=== PATIENT | female | born 1935 | race Caucasian/White ===

== ENCOUNTER → 2016-11-19 | Outpatient (CLI) | payer OTHER ==
[~2016-11-19] MED LIST: ACET-1138 PO; ASPEC81 PO; CHOL100010 PO; CLB200 PO; CLOB-65 EXT; LANS15TA2 PO; LISI-787 PO; METH10TA6 PO; NYSTCRE11 TOP; RANI300T2 PO; RXC5 PO; SNK PO; TRAM-10 PO
[2016-11-19 15:21] LABS: THYROID STIMULATING HORMONE 1.55 uIu/ml (0.300-4.500)
== END | disposition home or self-care (01) ==
LOC: C.LAB1850 13:57
PROVIDERS: ATTEND Internal Medicine Endocrinology, Diabetes & Metabolism
DX: E05.90 Thyrotoxicosis, unspecified without thyrotoxic crisis or storm (principal)

== ENCOUNTER → 2016-11-21 | Outpatient (CLI) | payer OTHER | END | disposition home or self-care (01) | LOC: C.LAB1850 13:41 | PROVIDERS: ATTEND Internal Medicine Endocrinology, Diabetes & Metabolism | DX: E83.52 Hypercalcemia (principal) ==

== ENCOUNTER → 2017-03-27 | Outpatient (CLI) | payer OTHER ==
[2017-03-27 16:49] LABS: CALCIUM 9.1 mg/dl (8.5-10.1); CREATININE 0.95 mg/dl (0.60-1.20)
== END | disposition home or self-care (01) ==
LOC: C.LAB1850 15:07
PROVIDERS: ATTEND Internal Medicine Endocrinology, Diabetes & Metabolism
DX: E21.3 Hyperparathyroidism, unspecified (principal); E05.90 Thyrotoxicosis, unspecified without thyrotoxic crisis or storm; M85.80 Other specified disorders of bone density and structure, unspecified site

== ENCOUNTER → 2017-04-14 | Day surgery (SDC) | payer OTHER ==
[~2017-04-14] VITALS: Ht 154.9 cm; Wt 87.7 kg
[~2017-04-14] MED LIST changes: +ACETAMINOPHEN 500 MG TAB PO PRN; +ZOLEDRONIC ACID INJ 5 MG in EMPTY BAG 0 ML IV SCH
[2017-04-14 10:42] VITALS: BP 177/91; PULSE 69; TEMP 36.8; O2SAT 98; Ht 154.9 cm; Wt 87.7 kg
== END | disposition home or self-care (01) ==
LOC: C.MTU 10:05
PROVIDERS: ATTEND Internal Medicine Endocrinology, Diabetes & Metabolism
DX: M81.0 Age-related osteoporosis without current pathological fracture (principal)

== ENCOUNTER → 2017-07-27 | Outpatient (CLI) | payer OTHER ==
[~2017-07-27] MED LIST changes: -ACET-1138 PO; -ACETAMINOPHEN 500 MG TAB PO PRN; -ASPEC81 PO; -CLB200 PO; -SNK PO; -ZOLEDRONIC ACID INJ 5 MG in EMPTY BAG 0 ML IV SCH
[2017-07-27 16:00] LABS: CALCIUM 10.5 mg/dl (8.5-10.1)
== END | disposition home or self-care (01) ==
LOC: C.LAB1850 14:08
PROVIDERS: ATTEND Internal Medicine Endocrinology, Diabetes & Metabolism
DX: E05.90 Thyrotoxicosis, unspecified without thyrotoxic crisis or storm (principal); E21.3 Hyperparathyroidism, unspecified

== ENCOUNTER 2023-06-06 12:25 | Inpatient (IN) ==
--- OUTSIDE RECORDS SUMMARY | 2023-06-06 12:37 | External Medical Summary ---
Author Name Unknown Address Unknown Organization [id number]:LAB[facility]ATORY [facility] [place] - [address] [place] [address] Laboratory Report Ordering Provider Test Date Status MIRELLA LEE 06/02/2023 12:30:04 Final Observation Date Value Abnormality Reference (Units ) Status Parathyrin.intact [Mass/volume] in Serum or Plasma 06/02/2023 12:30:04 35 15-65 (pg/mL) Final Performing Location [facility]ORY [facility] [place] - [address] [place] [address]
--- OUTSIDE RECORDS SUMMARY | 2023-06-06 12:37 | External Medical Summary ---
Author Name Unknown Address Unknown Organization [id number]:[facility] [place] [address] [place] [address] Laboratory Report Ordering Provider Test Date Status MIRELLA LEE 06/02/2023 12:30:04 Final Observation Date Value Abnormality Reference (Units ) Status WBC, Total 06/02/2023 12:30:04 6.12 4.00-10.80 (K/uL) Final RBC 06/02/2023 12:30:04 4.49 3.85-5.15 (M/uL) Final Hemoglobin 06/02/2023 12:30:04 9.9 Below low normal 12.0-15.3 (g/dL) Final HCT 06/02/2023 12:30:04 35.3 Below low normal 36.0-45.2 (%) Final MCV 06/02/2023 12:30:04 78.6 81.5-97.5 (fL) Final MCH 06/02/2023 12:30:04 22.0 27.0-34.0 (pg) Final MCHC 06/02/2023 12:30:04 28.0 32.0-36.0 (g/dL) Final RDW 06/02/2023 12:30:04 16.0 11.5-15.5 (%) Final Platelets 06/02/2023 12:30:04 300 140-400 (K/uL) Final MPV 06/02/2023 12:30:04 11.6 6.6-11.1 (fL) Final Nucleated erythrocytes/100 leukocytes [Ratio] in Blood by Automated count 06/02/2023 12:30:04 0 <=0 (/100 WBCs) Final Performing Location [facility] [place] - [address] [place] [address]
--- OUTSIDE RECORDS SUMMARY | 2023-06-06 12:37 | External Medical Summary | Summary of Care ---
Author Name Unknown Organization [facility] Address [address] [place] [address] Phone [phone] Care Team Providers Care Staff Registered Nurse Name Role Phone Jesus Ireland DO Primary Care Provider Reason for Visit * Reason Comments eRx-Medication Refill Encounter Details Date Type Department Care Team (Late st Contact Info) Description 06/03/2023 Refill [facility] [address] [place] [address] Jesus Ireland DO [address], [place] [phone] Chronic bilateral low back pain without sciatica Allergies Active Allergy Reactions Criticality Noted Date Comments Morphine Nausea/vomiting 03/29/2014 documented as of this encounter (statuses as of 06/03/2023) Medications Medication Sig Dispensed Refills Start Date End Date Status PREVACID 15 MG OR PACK 1 PO QAM 0 0 11/26/2004 Active nystatin-triamcino lone (MYCOLOG) 956889-4.1 UNIT/GM-% ointment 0 08/04/2015 Active clobetasol propionate (TEMOVATE) 0.05 % creamIndications:D ermatitis Apply topically to affected area 2 times a day. To affected area for up to two weeks. 60 g 1 01/02/2016 Active Diclofenac Sodium 1 % gelIndications:MED ICATION USE AGREEMENT Place 4 g topically on the skin 4 times a day. Apply to R wrist - rub in well 100 g 2 03/24/2019 Active famotidine (PEPCID) 20 MG Tablet Take 1 Tab by mouth daily. 90 Tab 3 06/30/2019 Active amLODIPine Besylate 5 MG Oral Tablet (Norvasc)Indicatio ns:HTN, goal below 140/90 Take 1 Tablet by mouth in the morning. 90 Tablet 11 08/04/2022 Active Lisinopril 30 MG Oral TabletIndications: HTN, goal below 140/90 Take 1 Tablet by mouth in the morning. 90 Tablet 3 08/04/2022 Active Zoster Vac Recomb Adjuvanted 50 MCG/0.5ML Intramuscular Suspension Reconstituted (Shingrix)Indicati ons:Need for shingles vaccine Inject 0.5 mL into a large muscle now and repeat dose in 60 to 180 days 1 Each 1 08/25/2022 Active methIMAzole 5 MG Oral Tablet (Tapazole) Take 1 Tablet by mouth in the morning. 0 Active Cinacalcet HCl 60 MG Oral Tablet (Sensipar) Take 1 Tablet by mouth 2 times a day. 0 12/04/2022 Active Omeprazole 20 MG Oral Capsule Delayed Release (PriLOSEC)Indicati ons:Gastroesophage al reflux disease without esophagitis Take 1 Capsule by mouth in the morning. 1 hour before the first meal of the day. 90 Capsule 3 05/25/2023 Active Zoster Vac Recomb Adjuvanted 50 MCG/0.5ML Intramuscular Suspension Reconstituted (Shingrix)Indicati ons:Need for shingles vaccine Inject 0.5 mL into a large muscle now and repeat dose in 60 to 180 days 1 Each 1 05/25/2023 Active traMADol HCl 50 MG Oral Tablet (Ultram)Indication s:Chronic bilateral low back pain without sciatica Take 1 Tablet by mouth every 8 hours as needed for Pain, Severe. 60 Tablet 0 06/03/2023 Active traMADol HCl 50 MG Oral Tablet (Ultram)Indication s:Chronic bilateral low back pain without sciatica Take 1 Tablet by mouth 2 times a day as needed for Pain, Moderate. 60 Tablet 0 02/16/2023 3 Discontinued documented as of this encounter (statuses as of 06/03/2023) Active Problems Problem Noted Date Diagnosed Date Iron deficiency anemia 03/18/2021 MEDICATION USE AGREEMENT 08/03/2018 Hyperparathyroidism, primary 12/11/2017 Senile osteoporosis 09/10/2017 Hypercalcemia 10/01/2015 Hyperthyroidism 10/01/2015 HTN, goal below 140/90 Gastroesophageal reflux disease without esophagi tis documented as of this encounter (statuses as of 06/03/2023) Resolved Problems Problem Noted Date Diagnosed Date Resolved Date Hyperparathyroidism 10/01/2015 09/11/19 ADVANCE DIRECTIVE INFORMATION 06/06/2015 03/24/2019 Overview: Yes, Copy scanned at patient level in the electronic medical record.(Go to Action, Patient File to view) Patient aware they must notify their healthcare provider of changes. Kidney disease, chronic, sta ge III (GFR 30-59 ml/min) 04/09/2015 06/06/2016 Overview: Per CKD protocol #1 documented as of this encounter (statuses as of 06/03/2023) Immunizations Name Administration Dates Next Due Pneumococcal Conjugate Vacc, 13 Valent (Prevnar) 03/13/2017 Pneumococcal Polysaccharide PPV23 (Pneumovax) Seasonal Influenza, Quadrivalent Hd (Fluzone Hd) 08/04/2022 documented as of this encounter Social History Tobacco Use Types Packs/Day Years Used Date Smoking Tobacco: Never Passive Smoke Exposure: Past Smokeless Tobacco: Never Passive Exposure Comments:As A Child. Alcohol Use Standard Drinks/Week Comments No 0 (1 standard drink = 0.6 oz pur e alcohol) PHQ-2 Answer Date Recorded PHQ-2 Score 0 01/14/2020 Hunger Vital Sign Answer Date Recorded Worried About Running Out of Food in the Last Ye ar Never true 01/14/2020 Ran Out of Food in the Last Year Never true 01/14/2020 Sex and Gender Information Value Date Recorded Sex Assigned at Female 08/25/2022 12:28 PM EST Gender Identity Female 08/25/2022 12:28 PM EST Sexual Orientation Straight 01/14/2020 10 :34 AM EDT Job Start Date Occupation Industry Not on file Not on file Not on file documented as of this encounter Miscellaneous Notes * Telephone Encounter - Jesus Ireland DO - 06/03/2023 2:31 PM ESTSigned Prescriptions: Disp Refills traMADol HCl 50 MG Oral Tablet (Ultram) 60 Tab*0 Sig: Take 1 Tablet by mouth every 8 hours as needed for Pain, Severe. Authorizing Provider: JESUS IRELAND * Telephone Encounter - Austen Zambrano, [facility] - 06/03/2023 2:11 PM EST Pending Prescriptions: Disp Refills traMADol HCl 50 MG Oral Tablet 60 Tab*0 Sig: TAKE 1 TABLET BY MOUTH TWICE DAILY NEEDED FOR MODERATE PAIN * Telephone Encounter - Austen Zambrano [facility] - 06/03/2023 2:10 PM EST I have reviewed the patients controlled substance dispensing history in the Prescription Drug Monitoring Program in compliance with the [facility] regulations before prescribing a controlled substance. PDMP checked on 06/03/2023. Pending Prescriptions: Disp Refills traMADol HCl 50 MG Oral Tablet (Ultram) [*60 Tab*0 Sig: TAKE 1 TABLET BY MOUTH TWICE DAILY NEEDED FOR MODERATE PAIN Last Visit: 05/25/2023 (in office), 06/20/2020 (telemedicine) Next Visit: 09/30/2023 Date medication was last filled: 02/16/23 Date medication is due for refill: 03/17/23 Pharmacy: [facility] [address] [place] Is this request for a controlled substance? Yes and Urine Drug Screen Not completed Please approve if appropriate. Thanks, Austen Zambrano, PharmD Clinical Pharmacist [facility] ([facility]) (formerly Telepharmacy) [phone] 06/03/2023, 2:11 PM documented in this encounter Plan of Treatment Upcoming Encounters Date Type Department Care Team (Late st Contact Info) Description 09/30/2023 11:30 AM EDT Office Visit [facility] [address] [place] [facility] [place] [address] Jesus Ireland DO [address] [place] [facility] [place] [address] Scheduled Procedures Name Priority Associated Diagnoses Date/Ti me ESOPHAGOGASTRODUODENOSCOPY ( EGD), FLEXIBLE, TRANSORAL: MUCOSAL RESECTION Recall Gastric polyps Health Maintenance Due Date Last Done Comments DTaP,Tdap,and Td Vaccines (1 - Tdap) 10/20/1954 Zoster Vaccines (1 of 2) 1986 Depression Screening 01/13/2021 01/14/2020 COVID-19 Vaccine (3 - 2022- season) 2023 2020, 09/28/2020 Influenza Vaccine (FLU shot) (#1) 2023 08/04/2022 DXA Scan 10/30/2023 10/29/2021, 10/2019, 02/17/2017, Additional history exists Albumin/Creatinine Ratio 06/02/2026 06/02/2023 Pneumococcal Vaccine: 65+ Years Completed 03/13/2017, 10/01/2015 VITAMIN D LEVEL ONCE IN A LIFETIME-USE SMARTSET# 69351 Completed 01/14/2020 GARDASIL-HPV IMMUNIZATION SERIES Aged Out No longer eligible based on patient's age to complete this topic Hepatitis B Aged Out No longer eligi ble based on patient's age to complete this topic MENINGOCOCCAL (MENACTRA/MENVEO) Aged Out No longer eligible based on patient's age to complete this topic documented as of this encounter Medical Devices Not on filedocumented as of this encounter Visit Diagnoses Diagnosis Chronic bilateral low back pain without sciatica documented in this encounter Care Teams Staff Registered Nurse Relationship Specialty Start Date End Date Jesus Ireland DO [address] [id number] PCP - General Family Medicine 08/03/18 documented as of this encounter
--- OUTSIDE RECORDS SUMMARY | 2023-06-06 12:37 | External Medical Summary ---
Author Name Unknown Address Unknown Organization K01:[facility] [place] - [facility] [address] [place] [address] Laboratory Report Ordering Provider Test Date Status MIRELLA LEE 06/02/2023 12:30:04 Final Observation Date Value Abnormality Reference (Units ) Status BUN 06/02/2023 12:30:04 18 6-20 (mg/dL) Final Creatinine 06/02/2023 12:30:04 0.9 0.5-1.0 (mg/dL) Final Glomerular filtration rate/1.73 sq M.predicted [Volume Rate/Area] in Serum, Plasma or Blood by Creatinine-based formula (CKD-EPI) 06/02/2023 12:30:04 60 >=60 (mL/min) Final eGFR is calculated based on the CKD-EPI 2020 equation SODIUM 06/02/2023 12:30:04 143 135-146 (m mol/L) Final Potassium 06/02/2023 12:30:04 4.3 3.5-5.1 (m mol/L) Final Cl 06/02/2023 12:30:04 108 Above high normal 98 -107 (mmol/L) Final CO2 06/02/2023 12:30:04 23 22-32 (mmo l/L) Final Anion gap 06/02/2023 12:30:04 12 7-15 (mmol /L) Final Glucose 06/02/2023 12:30:04 95 70-120 (mg /dL) Final Calcium 06/02/2023 12:30:04 9.5 8.4-10.2 ( mg/dL) Final Performing Location [facility]ORY [facility] [place] - [address] [place] [address]
--- OUTSIDE RECORDS SUMMARY | 2023-06-06 12:37 | External Medical Summary ---
Author Name Unknown Address Unknown Organization K01:[facility]ATORY [facility] [place] - [address] [place] [address] Laboratory Report Ordering Provider Test Date Status MIRELLA LEE 06/02/2023 12:30:04 Final Observation Date Value Abnormality Reference (Units ) Status TSH 06/02/2023 12:30:04 0.54 0.27-4.20 (uIU/mL) Final Performing Location LAB[facility]ATORY [facility] - [address] [place] [address]
--- OUTSIDE RECORDS SUMMARY | 2023-06-06 12:37 | External Medical Summary ---
Author Name Unknown Address Unknown Organization K01:[facility] [place] [address] [place] [address] Laboratory Report Ordering Provider Test Date Status SUZE LEEPOLLY 06/02/2023 12:30:04 Final Normal: <30 mg/g creatinine< br/>High: 30-300 mg/g creatinine
Very High: >300 mg/g creatinine
Nephrotic: >2200 mg/g creatinine Observation Date Value Abnormality Reference (Units ) Status Albumin, Urine 06/02/2023 12:30:04 9.34 (mg/dL) Final Creatinine, Urine 06/02/2023 12:30:04 46 (mg/dL) Final Albumin/Creatinine [Mass Ratio] in Urine 06/02/2023 12:30:04 203 Above high normal <30 (mg/g Creat) Final Performing Location [facility] [place] [address] [place] [address]
--- OUTSIDE RECORDS SUMMARY | 2023-06-06 12:37 | External Medical Summary | Summary of Care ---
Author Name Unknown Organization [facility] Address [address] [place] [address] Phone [phone] Care Team Providers Care Machine Pecan Picker Name Role Phone Monse Ireland DO Primary Care Provider + [phone] Reason for Visit * Reason Comments Outpatient Testing Encounter Details Date Type Department Care Team (Late st Contact Info) Description 06/02/2023 12:30 PM EST Laboratory Laboratory, [place] [address] [place] [address] [place], [facility] [address], [place] [id number] Hypertension, unspecified type; Hypercalcemia; Other iron deficiency anemia; Hyperparathyroidism, primary (HCC); Hyperthyroidism Allergies Active Allergy Reactions Criticality Noted Date Comments Morphine Nausea/vomiting 03/29/2014 documented as of this encounter (statuses as of 06/02/2023) Medications Medication Sig Dispensed Refills Start Date End Date Status PREVACID 15 MG OR PACK 1 PO QAM 0 0 11/26/2004 Active nystatin-triamcinolon e (MYCOLOG) 402287-5.1 UNIT/GM-% ointment 0 08/04/2015 Active clobetasol propionate (TEMOVATE) 0.05 % creamIndications:Derm atitis Apply topically to affected area 2 times a day. To affected area for up to two weeks. 60 g 1 01/02/2016 Active Diclofenac Sodium 1 % gelIndications:MEDICA TION USE AGREEMENT Place 4 g topically on the skin 4 times a day. Apply to R wrist - rub in well 100 g 2 03/24/2019 Active famotidine (PEPCID) 20 MG Tablet Take 1 Tab by mouth daily. 90 Tab 3 06/30/2019 Active amLODIPine Besylate 5 MG Oral Tablet (Norvasc)Indications: HTN, goal below 140/90 Take 1 Tablet by mouth in the morning. 90 Tablet 11 08/04/2022 Active Lisinopril 30 MG Oral TabletIndications:HTN , goal below 140/90 Take 1 Tablet by mouth in the morning. 90 Tablet 3 08/04/2022 Active Zoster Vac Recomb Adjuvanted 50 MCG/0.5ML Intramuscular Suspension Reconstituted (Shingrix)Indications :Need for shingles vaccine Inject 0.5 mL into a large muscle now and repeat dose in 60 to 180 days 1 Each 1 08/25/2022 Active methIMAzole 5 MG Oral Tablet (Tapazole) Take 1 Tablet by mouth in the morning. 0 Active Cinacalcet HCl 60 MG Oral Tablet (Sensipar) Take 1 Tablet by mouth 2 times a day. 0 12/04/2022 Active traMADol HCl 50 MG Oral Tablet (Ultram)Indications:C hronic bilateral low back pain without sciatica Take 1 Tablet by mouth 2 times a day as needed for Pain, Moderate. 60 Tablet 0 02/16/2023 Active Omeprazole 20 MG Oral Capsule Delayed Release (PriLOSEC)Indications :Gastroesophageal reflux disease without esophagitis Take 1 Capsule by mouth in the morning. 1 hour before the first meal of the day. 90 Capsule 3 05/25/2023 Active Zoster Vac Recomb Adjuvanted 50 MCG/0.5ML Intramuscular Suspension Reconstituted (Shingrix)Indications :Need for shingles vaccine Inject 0.5 mL into a large muscle now and repeat dose in 60 to 180 days 1 Each 1 05/25/2023 Active documented as of this encounter (statuses as of 06/02/2023) Active Problems Problem Noted Date Diagnosed Date Iron deficiency anemia 03/18/2021 MEDICATION USE AGREEMENT 08/03/2018 Hyperparathyroidism, primary 12/11/2017 Senile osteoporosis 09/10/2017 Hypercalcemia 10/01/2015 Hyperthyroidism 10/01/2015 HTN, goal below 140/90 Gastroesophageal reflux disease without esophagi tis documented as of this encounter (statuses as of 06/02/2023) Resolved Problems Problem Noted Date Diagnosed Date [...] as of this encounter (statuses as of 06/02/2023) Immunizations Name Administration Dates Next Due Pneumococcal [...] on file documented as of this encounter Plan of Treatment Upcoming Encounters Date Type Department Care Team (Late st Contact Info) Description 09/30/2023 11:30 AM EDT [facility] [address] [phone] Monse Ireland [facility] [address] [phone] Pending Results Name Type Priority Associated Diagnoses Date /Time ALBUMIN / CREATININE RATIO, URINE Lab Routine Hypertension, unspecified type 06/02/2023 12:30 PM EST BASIC METABOLIC PANEL Lab Routine Hypercalcemia 06/02/2023 12:30 PM EST CBC Lab Routine Other iron deficiency anemia 06/02/2023 12:30 PM EST IRON SCREEN, INCLUDING TIBC Lab Routine Other iron deficiency anemia 06/02/2023 12:30 PM EST TSH WITH FREE T4 IF INDICATED Lab Routine Hyperparathyroidism, primary (HCC) Hypercalcemia Hyperthyroidism 06/02/2023 12:30 PM EST PTH Lab Routine Hyperparathyroidism, primary (HCC) Hypercalcemia Hyperthyroidism 06/02/2023 12:30 PM EST Scheduled Procedures Name Priority Associated Diagnoses Date/Ti me ESOPHAGOGASTRODUODENOSCOPY ( EGD), FLEXIBLE, TRANSORAL: MUCOSAL RESECTION Recall Gastric polyps Health Maintenance Due Date Last Done Comments Albumin/Creatinine Ratio 1953 DTaP,Tdap,and Td Vaccines (1 - Tdap) 10[birth year]20/1954 Zoster Vaccines (1 of 2) 1986 Depression Screening 01/13/2021 01/14/2020 COVID-19 Vaccine (3 - 2022- season) 2023 2020, 09/28/2020 Influenza Vaccine (FLU shot) (#1) 2023 08/04/2022 DXA Scan 10/30/2023 10/29/2021, 0210/2019, 02/17/2017, Additional history exists Pneumococcal Vaccine: 65+ Years Completed 03/13/2017, 10/01/2015 VITAMIN D LEVEL ONCE IN A LIFETIME-USE SMARTSET# 61438 Completed 01/14/2020 GARDASIL-HPV IMMUNIZATION SERIES Aged Out [...] as of this encounter Visit Diagnoses Diagnosis Hypertension, unspecified type Hypercalcemia Other iron deficiency anemia Hyperparathyroidism, primary (HCC) Primary hyperparathyroidism Hyperthyroidism Thyrotoxicosis without mention of goiter or other cause, without mention of thyrotoxic crisis or storm documented in this encounter Care Teams Machine Pecan Picker Relationship Specialty Start Date End Date Monse Ireland DO [address], [place] [phone] PCP - General Family Medicine 08/03/18 documented as of this encounter
--- OUTSIDE RECORDS SUMMARY | 2023-06-06 12:37 | External Medical Summary ---
Author Name Unknown Address Unknown Organization K01:[place] [facility] [place] [address] [place] [address] Laboratory Report Ordering Provider Test Date Status JESUSMIRELLA 06/02/2023 12:30:04 Final Observation Date Value Abnormality Reference (Units ) Status Iron 06/02/2023 12:30:04 19 Below low normal 33-151 (ug/dL) Final Iron-binding capacity 06/02/2023 12:30:04 415 250-425 (ug/dL) Final Transferrin Sat % 06/02/2023 12:30:04 5 Below low normal 15-55 (%) Final Performing Location [facility] [place] [address] [place] [address]
[2023-06-06 13:20] LABS: Albumin Globulin Ratio 1.6 (0.9-2); Albumin Level 4.2 gm/dl (3.4-5.0); BUN Creatinine Ratio 16.1 (10-20); Bilirubin,Total 0.5 mg/dl (0.2-1.0); Calcium 8.5 mg/dl (8.6-10.3); Creatinine Clr Calc Pharmacy 43.7 ml/min; Est GFR (African American) 64.5 ml/min; Est GFR (Non-African American) 55.6 ml/min; Globulin 2.7 gm/dl (2.5-4.0); Potassium 3.8 mmol/L (3.5-5.1); Total Protein 6.9 gm/dl (6.0-8.3)
[2023-06-06 13:27] LABS: Troponin I High Sensitivity 9.9 pg/ml (0-14)
[2023-06-06 13:29] LABS: Hematocrit (blood only) 34.2 % (37.0-47.0); Hemoglobin 9.9 g/dl (12.0-16.0); Mean Corpuscular Hemoglobin 21.7 pg (25.0-34.0); Mean Corpuscular Hgb Conc 28.9 g/dL (32.0-36.0); Mean Platelet Volume 10.4 fL (9.4-12.4); Platelet Count 293 K/uL (130-400); RDW Coefficient of Variation 16.4 % (11.5-14.5); RDW Standard Deviation 44.3 fL (36.4-46.3); Red Blood Count 4.56 M/uL (4.20-5.40); White Blood Count 6.35 K/ul (4.8-10.8)
[2023-06-06 13:30] LABS: Basophils # (auto) 0.02 K/uL (0.00-0.20); Basophils % (auto) 0.3 %; Eosinophils # (auto) 0.11 K/uL (0.00-0.50); Eosinophils % (auto) 1.7 %; Hypochromasia Present; Immature Granulocytes # (auto) 0.03 K/uL (0.01-0.20); Immature Granulocytes % (auto) 0.5 %; Lymphocytes # (auto) 1.32 K/uL (1.20-3.40); Lymphocytes % (auto) 20.8 %; Monocytes # (auto) 0.58 K/uL (0.11-0.59); Monocytes % (auto) 9.1 %; Neutrophils # (auto) 4.29 K/uL (1.40-6.50); Neutrophils % (auto) 67.6 %; Ovalocytes 1+; Partial Thromboplastin Ratio 0.9; Partial Thromboplastin Time 24 Seconds (21-31); Prothrombin Time 10.5 Seconds (9.0-12.0)
--- NOTE | 2023-06-06 13:37 | XRay Report ---
XR chest 1V not portable HISTORY: Chest pain, nonspecific COMPARISON: Chest 04/21/2021. FINDINGS: No pneumothorax. The heart is mildly enlarged. There are calcifications within the aortic k nob. Diffuse interstitial/vascular thickening consistent with mild pulmonary edema. There are trace b ilateral pleural effusions. Bibasilar linear densities favor subsegmental atelectasis. Degenerative c hanges within the shoulders. There is a large hiatus hernia again noted. IMPRESSION: 1. Cardiomegaly and mild interstitial pulmonary edema. 2. Trace bilateral pleural effusions. 3. Large hiatus hernia. ACT 112: Negative or not required by law. Electronically signed by: Víctor Almodovar M.D. 06/06/2023 1:35 PM
--- NOTE | 2023-06-06 14:12 | Emergency Department Note ---
Impression & Plan Acute exacerbation of CHF (congestive heart failure), Pulmonary hypertension, Hypervolemia ED Provider Note NAME: BERNARDINO ALVARADO AGE: 87 SEX: F ARRIVES VIA: Walk-In INFORMANT: Patient ED PROVIDER(S): Oskar Parmar MD CHIEF COMPLAINT: Shortness of breath, fluid retention, referred. PLAN: Disposition: Admit MEDICAL DECISION MAKING: The patient is a pleasant 87-year-old woman with a past medical history of severe tricuspid regurgitation, severe pulmonary hypertension who presents to the emergency department via walk-in accompanied by her son for evaluation of worsening shortness of breath over the past couple of weeks with increased weight gain and fluid retention where she was seen by her PCP office today and referred to emergency department for admission for diuresis and further evaluation of her symptoms. The patient is estimated to have had an approximate 15 pound weight gain over the past 2 weeks. She reports that she has to catch her breath whenever she is walking. She denies any chest pain at rest or exertion. They deny any fevers, chills, cough, GI or symptoms. On my evaluation the patient is no distress, afebrile with blood pressure initially 210s/80s and vital signs otherwise stable. She appears hypervolemic with 2+ bilateral lower extremity pitting edema. She has diminished breath sounds of bilateral lung gomez with scant underlying rales. EKG without overt acute ischemia. Chest x-ray demonstrates diffuse interstitial/vascular thickening consistent with pulmonary edema per my independent preliminary review. Additional radiology note of trace bilateral pleural effusions is seen with bibasilar linear densities that favor atelectasis. WBC and platelets within normal limits. H/H 9.9/34.2 decreased from prior however no recent for comparison. Platelets within normal limits. Chemistry without metabolic acidosis. LFTs are unremarkable. High-sensitivity troponin is 9.9, within normal limits. BNP is 620, consistent with the patient's hypervolemia. Treatment was initiated with IV Lasix. The patient and her son at the bedside agree with plan for admission for further management. Case was discussed with Emelia Navas, [facility] PAC, with Dr. Larson, [facility] hospitalist who will evaluate the patient for admission. Triage Nursing notes reviewed and agree them. Prior/external medical records reviewed Vital Signs: reviewed Differential diagnosis: Reactive airway disease, pneumonia, pneumothorax, COPD, CHF, infections, cardiac ischemia, pulmonary embolism, musculoskeletal, gastrointestinal, as well as other pathologies. ER treatment provided: See below. Diagnostics interpreted by me: ECG: Normal sinus rhythm, 77 bpm, LVH, nonspecific ST and T wave abnormality, no overt ST elevation or depression, QTc 452, QRS 90. Cardiac Monitoring: An order for continuous cardiac monitoring was placed and demonstrated normal sinus rhythm, 77 bpm, no ectopy Laboratory studies: See below Imaging studies: See below Consultation(s): Case was discussed with Emelia Navas, [facility] PAC, with Dr. Larson, [facility] hospitalist who will evaluate the patient for admission. HPI: The patient is a pleasant 87-year-old woman with a past medical history of severe tricuspid regurgitation, severe pulmonary hypertension who presents to the emergency department via walk-in accompanied by her son for evaluation of worsening shortness of breath over the past couple of weeks with increased weight gain and fluid retention where she was seen by her PCP office today and referred to emergency department for admission for diuresis and further evaluation of her symptoms. The patient is estimated to have had an approximate 15 pound weight gain over the past 2 weeks. She reports that she has to catch her breath whenever she is walking. She denies any chest pain at rest or exertion. They deny any fevers, chills, cough, GI or symptoms. ROS: See above HPI for pertinent positives & negatives. A total of 10 systems reviewed and were otherwise negative. VITALS:See Below PHYSICAL EXAMINATION: GENERAL: Awake, alert, in no distress HENT: Normocephalic, atraumatic. Oropharynx unremarkable. EYES: Normal conjunctiva. Sclera non-icteric. NECK: Supple. No nuchal rigidity. FROM. No JVD. RESPIRATORY: Diminished breath sounds bilateral lung gomez with scant underlying rales. CARDIAC: Regular rate, normal rhythm. Extremities warm and well perfused. Pulses equal. ABDOMEN: Soft, non-distended. No tenderness to palpation. No rebound or guarding. No masses. RECTAL: Deferred. MUSCULOSKELETAL: Chest examination reveals no tenderness. The back is symmetrical on inspection without obvious abnormality. There is no CVA tenderness to palpation. No joint edema. LOWER EXTREMITIES: Calves are equal size bilaterally and non-tender. 2+ BLE edema. No discoloration. NEURO: Normal sensorium. No sensory or motor deficits noted. SKIN: No rash or jaundice noted. Oskar Parmar MD Past Med/Surg History Medical History History of peptic ulcer disease GERD without esophagitis Iron deficiency anemia Toxic multinodular goiter Vitamin D deficiency Osteoporosis Hypercalcemia Hyperparathyroidism Hypertension Hyperthyroidism Uterine cancer Inguinal hernia Breast cyst Arthritis Surgical History History of parathyroid surgery History of D&C History of tonsillectomy Status post total right knee replacement H/O: hysterectomy Family History Mother Diabetes Sister Diabetes Brother Cancer Social History Smoking Status: Never smoker Second Hand Exposure: No; Do You Dip or Chew Tobacco: No; Tobacco Cessation Education Requested by Patient: No Hx Alcohol Use: No Hx Substance Use: No Preferred Language: Kyrgyz Communication Ability: Effective Admissions Advisor Required: No Beliefs That Will Affect Care: Confucianist Confucianist Beliefs: CHRISTIANITY SO NO BLOOD PRODUCTS Current Living Situation: Alone Other Information That Helps Us Care for You: No Feels Safe at Home: Yes Safety Concerns: Feels Safe At This Time Assistive Devices: Cane, Denture - Upper and Denture - Lower Allergies Allergies Allergy/AdvReac Type Severity Reaction Status Date / Time morphine AdvReac Unknown NAUSEA Verified 04/15/23 11:35 Home Meds Home Medications Medication Instructions Recorded Confirmed zoledronic acid 5 mg/100 mL in 1 ea IV YEARLY 08/30/19 06/06/23 mannitol 5 %-water intravenous piggybck (Reclast) amlodipine 5 mg tablet 5 mg PO DAILY 03/27/21 06/06/23 lisinopril 30 mg tablet 30 mg PO DAILY 06/06/23 06/06/23 omeprazole 20 mg capsule,delayed 20 mg PO DAILY 06/06/23 06/06/23 release tramadol 50 mg tablet 50 mg PO BID PRN Pain 06/06/23 06/06/23 Previous Rx's Medication Instructions Recorded cinacalcet 60 mg tablet 60 mg PO BID #60 tabs 02/24/23 methimazole 5 mg tablet 10 mg (2 x 5 mg) PO DAILY #60 tabs 03/09/23 Results & Data (ED) Vital Signs Vital Signs - 24 hr 06/06/23 12:30 06/06/23 14:22 06/06/23 14:24 Temperature 36.6 C Temperature Source Temporal Artery Scan Pulse Rate 84 Pulse Rate [Apical] 68 Pulse Rhythm [Apical] Regular Pulse Strength [Apical] Normal Respiratory Rate 18 17 Respiratory Effort / Characteristics Non-Labored Spontaneous Non-Labored Spontaneous Respiratory Depth Normal Normal Respiratory Pattern Regular Regular Blood Pressure 219/89 H Blood Pressure [Left Arm] 192/93 H Blood Pressure Mean 132 Blood Pressure Mean [Left Arm] 126 Blood Pressure Position Sitting Pulse Oximetry 98 97 98 Oxygen Delivery Method Room Air Room Air Room Air Sepsis Recent Fever Within 48 Hours No Sepsis New/Unexplained Change in Mental Status N/A Sepsis Action Taken by Nursing No Action Required 06/06/23 15:47 Temperature Temperature Source Pulse Rate Pulse Rate [Apical] 86 Pulse Rhythm [Apical] Regular Pulse Strength [Apical] Normal Respiratory Rate 18 Respiratory Effort / Characteristics SOB on Exertion Respiratory Depth Normal Respiratory Pattern Regular Blood Pressure Blood Pressure [Left Arm] 206/87 H Blood Pressure Mean Blood Pressure Mean [Left Arm] 126 Blood Pressure Position Pulse Oximetry 97 Oxygen Delivery Method Room Air Sepsis Recent Fever Within 48 Hours Sepsis New/Unexplained Change in Mental Status Sepsis Action Taken by Nursing Laboratory Data Attestation: I reviewed the patient's lab results. 06/06/23 12:30 06/06/23 12:30 Lab Results 06/06/23 Range/Units 12:30 WBC 6.35 (4.8-10.8) K/ul RBC 4.56 (4.20-5.40) M/uL Hgb 9.9 L (12.0-16.0) g/dl Hct 34.2 L (37.0-47.0) % MCV 75.0 L (80.0-100.0) fL MCH 21.7 L (25.0-34.0) pg MCHC 28.9 L (32.0-36.0) g/dL RDW Std Deviation 44.3 (36.4-46.3) fL RDW Coeff of Denilson 16.4 H (11.5-14.5) % Plt Count 293 (130-400) K/uL MPV 10.4 (9.4-12.4) fL Immature Gran % (Auto) 0.5 % Neut % (Auto) 67.6 % Lymph % (Auto) 20.8 % [place] % (Auto) 9.1 % Eos % (Auto) 1.7 % Baso % (Auto) 0.3 % Neut # (Auto) 4.29 (1.40-6.50) K/uL Lymph # (Auto) 1.32 (1.20-3.40) K/uL [place] # (Auto) 0.58 (0.11-0.59) K/uL Eos # (Auto) 0.11 (0.00-0.50) K/uL Baso # (Auto) 0.02 (0.00-0.20) K/uL Immature Gran # (Auto) 0.03 (0.01-0.20) K/uL Hypochromasia Present Ovalocytes 1+ PT 10.5 (9.0-12.0) Seconds INR 1.0 (0.9-1.1) APTT 24 (21-31) Seconds PTT Ratio 0.9 Sodium 142 (136-145) mmol/L Potassium 3.8 (3.5-5.1) mmol/L Chloride 109 H (98-107) mmol/L Carbon Dioxide 24 (21-32) mmol/L Anion Gap 9 (3-11) BUN 15 (6-23) mg/dl Creatinine 0.93 (0.6-1.2) mg/dl Est Cr Clr Drug Dosing 43.7 ml/min Est GFR ( Amer) 64.5 ml/min Est GFR (Non-Af Amer) 55.6 ml/min BUN/Creatinine Ratio 16.1 (10-20) Glucose 97 (70-99(Fasting)) mg/dl Calcium 8.5 L (8.6-10.3) mg/dl Total Bilirubin 0.5 (0.2-1.0) mg/dl AST 38 (13-39) U/L ALT 37 (7-52) U/L Alkaline Phosphatase 69 (34-104) U/L Troponin I High Sens 9.9 (0-14) pg/ml B-Natriuretic Peptide 620 H (0-100) pg/ml Total Protein 6.9 (6.0-8.3) gm/dl Albumin 4.2 (3.4-5.0) gm/dl Globulin 2.7 (2.5-4.0) gm/dl Albumin/Globulin Ratio 1.6 (0.9-2) Administered Medications Cinacalcet (Cinacalcet Hcl 30 Mg Tab) 60 mg PO BID EDWINA Stop: 07/06/23 20:59 Last Admin: 06/06/23 20:55 Dose: 60 mg Documented By: CP Discontinued Medications Furosemide (Furosemide Inj 20 Mg/2 Ml Vial) 20 mg IV ONE ONE Stop: 06/06/23 14:43 Last Admin: 06/06/23 15:40 Dose: 20 mg Documented By: WILDER Influenza Virus Vaccine (Influenza Vaccine High-Dose (Hd-Iiv4) Pf 65+ 0.7ml Syr) 0.7 ml IM .ONCE ONE Stop: 06/06/23 18:03 Last Admin: 06/06/23 19:30 Dose: Not Given Documented By: SIDDHARTH Imaging Data Radiologist's Impression: Chest X-Ray 06/06/23 12:39 XR chest 1V not portable HISTORY: Chest pain, nonspecific COMPARISON: Chest 04/21/2021. FINDINGS: No pneumothorax. The heart is mildly enlarged. There are calcifications within the aortic knob. Diffuse interstitial/vascular thickening consistent with mild pulmonary edema. There are trace bilateral pleural effusions. Bibasilar linear densities favor subsegmental atelectasis. Degenerative changes within the shoulders. There is a large hiatus hernia again noted. IMPRESSION: 1. Cardiomegaly and mild interstitial pulmonary edema. 2. Trace bilateral pleural effusions. 3. Large hiatus hernia. ACT 112: Negative or not required by law. Electronically signed by: Víctor Almodovar M.D. 06/06/2023 1:35 PM Discharge Plan Visit Data Chief Complaint: Cardiac Assessment Stated Complaint: REFERRED BY CODY [place]GL[place], CARDIAC SX ED Provider: Oskar Parmar Discharge Problem: Acute exacerbation of CHF (congestive heart failure), Pulmonary hypertension, Hypervolemia Patient Disposition: Admitted As Inpatient Discharge Instructions Interventions: ED Discharge Assessment Last Done: 06/06/23 16:59 Discharge Problem: Acute exacerbation of CHF (congestive heart failure) Qualifiers: Heart failure type: unspecified Qualified Code(s): I50.9 - Heart failure, unspecified Hypervolemia Qualifiers: Hypervolemia type: unspecified Qualified Code(s): E87.70 - Fluid overload, unspecified
[2023-06-06] MEDS ORDERED: FUROSEMIDE INJ 20 MG/2 ML VIAL IV ONE (14:42)
--- NOTE | 2023-06-06 15:10 | History & Physical Report ---
Date of Service June 06, 2023 Assessment & Plan (1) Acute exacerbation of CHF (congestive heart failure): Plan: This is an 87 y/o female with hyperparathyroidism, HTN, toxic multinodular goiter, osteoporosis with vitamin D deficiency, GERD, and other history as outlined who was referred to the ED from [facility] with progressive SANFORD and weight gain. Work-up in the ED consistent with volume overload as evidenced by peripheral edema, chest x-ray with interstitial pulmonary edema, and elevated BNP. Pt is not currently hypoxic but is markedly dyspneic with exertion so she was referred for admission for IV diuresis and cardiac evaluation. Initial troponin negative. - Admit to PCU - Given IV furosemide 20 mg now, will start furosemide 20 mg IV BID in the AM - Monitor Is and Os, daily weights - Follow BMP, replete electrolytes PRN - Update ECHO - Consult Cardiology - pt has previously followed with Dr. Chapman (next appt scheduled in Jun 2023) (2) Pulmonary hypertension: (3) Hypertension: (4) Hyperthyroidism: (5) Hyperparathyroidism: (6) GERD without esophagitis: Plan: Recently started PPI with improvement in symptoms. Will continue. Plan Continue other home medications as appropriate. Family updated at the bedside - all questions answered. Pt seen and reviewed with attending physician, Dr. Larson. Plan of care di scussed and as outlined above. Code Status: DNR/DNI DVT Prophylaxis: Swapna Navas PA-C History of Present Illness Chief Complaint: worsening LE edema, wt gain Primary Care Provider: Monse Ireland DO This is an 87 y/o female with hyperparathyroidism, HTN, toxic multinodular goiter, osteoporosis with vitamin D deficiency, GERD, and other history as outlined who was referred to the ED from [facility] with progressive SANFORD and weight gain. Pt reports intermittent issues with LE edema over the last two years but current episode of increased swelling started about two weeks ago. Often she can attribute to consuming salt in her diet but cannot recall any recent dietary indiscretions that would have triggered the current symptoms. Over the last 7-10 days, she has noticed dyspnea with exertion that has also worsened to the point of now interfering with her daily life. Her son relates an example from yesterday when she went to the [employer] and became short of breath just walking out to the car to the point of being unable to hold a conversation. She typically has to rest for 5-10 minutes before her breathing is back to baseline. She denies chest pain, dizziness, syncopal events, or dyspnea at rest. She has occasional palpitations, which are unchanged from usual. No recent illness - denies fevers, chills, N/V/D, cough, congestion, sore throat. She has been more fatigued than normal. Today, she was seen for these symptoms at [facility] and was noted to have a 15 lb weight gain. She was subsequently referred to the ED for evaluation and possible IV diuresis. ECHO 09/12/22 - LVEF 55-59%; mild AV stenosis and calcification with trace AI, mild mitral annular calcification, moderate MR, moderate LAE suggesting diastolic LV dysfunction; moderate to severe TR, moderate HONEY; severe pulmonary artery hypertension (estimated PA sys pressure 78 mm Hg) Allergies Allergy/AdvReac Type Severity Reaction Status Date / Time morphine AdvReac Unknown NAUSEA Verified 04/15/23 11:35 Home Medications Medication Instructions Recorded Confirmed Type zoledronic acid 5 mg/100 mL in 1 ea IV YEARLY 08/30/19 06/06/23 History mannitol 5 %-water intravenous piggybck (Reclast) amlodipine 5 mg tablet 5 mg PO DAILY 03/27/21 06/06/23 History cinacalcet 60 mg tablet 60 mg PO BID #60 tabs 02/24/23 06/06/23 Rx methimazole 5 mg tablet 10 mg (2 x 5 mg) PO DAILY #60 tabs 03/09/23 06/06/23 Rx lisinopril 30 mg tablet 30 mg PO DAILY 06/06/23 06/06/23 History omeprazole 20 mg capsule,delayed 20 mg PO DAILY 06/06/23 06/06/23 History release tramadol 50 mg tablet 50 mg PO BID PRN Pain 06/06/23 06/06/23 History Past Med/Surg History Medical History (Updated 06/06/23 @ 19:48 by Emelia Navas PA-C) History of peptic ulcer disease GERD without esophagitis Iron deficiency anemia Toxic multinodular goiter Vitamin D deficiency Osteoporosis Hypercalcemia Hyperparathyroidism Hypertension Hyperthyroidism Uterine cancer Inguinal hernia Breast cyst Arthritis Surgical History (Updated 06/06/23 @ 15:01 by Emelia Navas PA-C) History of parathyroid surgery History of D&C History of tonsillectomy Status post total right knee replacement H/O: hysterectomy Family History (Updated 06/06/23 @ 15:02 by Emelia Navas PA-C) Mother Diabetes Sister Diabetes Brother Cancer Social History (Updated 06/06/23 @ 15:02 by Emelia Navas PA-C) Smoking Status: Never smoker Second Hand Exposure: No; Do You Dip or Chew Tobacco: No; Tobacco Cessation Education Requested by Patient: No Hx Alcohol Use: No Hx Substance Use: No Preferred Language: Swedish Communication Ability: Effective Lead Software Development Engineer Required: No Beliefs That Will Affect Care: Hoahaoism Hoahaoism Beliefs: BUDDHISM SO NO BLOOD PRODUCTS Current Living Situation: Alone Other Information That Helps Us Care for You: No Feels Safe at Home: Yes Safety Concerns: Feels Safe At This Time Assistive Devices: Cane, Denture - Upper and Denture - Lower Review of Systems Review of Systems: All systems reviewed & are unremarkable except as noted in HPI & below Constitutional: + fatigue, + anorexia and + weight gain; no fever and no chills Eyes: no diplopia Ear, Nose, Mouth, Throat: no nasal congestion, no nasal discharge and no sore throat Respiratory: no cough and no chest congestion Cardiovascular: + dyspnea on exertion and + edema; no ch est pain Gastrointestinal: + heartburn (recent addition of omeprazo le with improvement); no abdominal pain, no nausea, no vomiting and no diarrhea/loose stools Genitourinary: no dysuria, no urinary frequency and no hematuria Musculoskeletal: + back pain (chronic issue - unchanged) Integumentary: no rash and no yellowing of the skin Neurologic: no seizure-like activity and no headache(s) Psychiatric: no depression and no anxiety Physical Exam Physical Exam: General: awake, alert, NAD HEENT: no scleral icterus Neck: trachea midline Heart: RRR, +murmur Lungs: bibasilar rales Abdomen: soft, NT, +BS Extremities: 2+ pitting edema bilateral LE Skin: no jaundice Neuro: moving all extremities, no focal deficits; no dysarthria; Ox3 Results & Data Results & Data Vital Signs (Past 12 Hours) Vital Signs Temp Pulse Pulse Resp BP BP Pulse Ox 06/06/23 14:24 98 06/06/23 14:22 68 17 192/93 H 97 06/06/23 12:30 36.6 C 84 18 219/89 H 98 O2 Del Method 06/06/23 14:24 Room Air 06/06/23 14:22 Room Air 06/06/23 12:30 Room Air Laboratory Results Laboratory Results - last 24 hr 06/06/23 12:30 WBC 6.35 RBC 4.56 Hgb 9.9 L Hct 34.2 L MCV 75.0 L MCH 21.7 L MCHC 28.9 L RDW Std Deviation 44.3 RDW Coeff of Denilson 16.4 H Plt Count 293 MPV 10.4 Immature Gran % (Auto) 0.5 Neut % (Auto) 67.6 Lymph % (Auto) 20.8 [place] % (Auto) 9.1 Eos % (Auto) 1.7 Baso % (Auto) 0.3 Neut # (Auto) 4.29 Lymph # (Auto) 1.32 [place] # (Auto) 0.58 Eos # (Auto) 0.11 Baso # (Auto) 0.02 Immature Gran # (Auto) 0.03 Hypochromasia Present Ovalocytes 1+ PT 10.5 INR 1.0 APTT 24 PTT Ratio 0.9 Sodium 142 Potassium 3.8 Chloride 109 H Carbon Dioxide 24 Anion Gap 9 BUN 15 Creatinine 0.93 Est Cr Clr Drug Dosing 43.7 Est GFR ( Amer) 64.5 Est GFR (Non-Af Amer) 55.6 BUN/Creatinine Ratio 16.1 Glucose 97 Calcium 8.5 L Total Bilirubin 0.5 AST 38 ALT 37 Alkaline Phosphatase 69 Troponin I High Sens 9.9 B-Natriuretic Peptide 620 H Total Protein 6.9 Albumin 4.2 Globulin 2.7 Albumin/Globulin Ratio 1.6 Diagnostic Findings Chest X-Ray 06/06/23 12:39 XR chest 1V not portable HISTORY: Chest pain, nonspecific COMPARISON: Chest 04/21/2021. FINDINGS: No pneumothorax. The heart is mildly enlarged. There are calcifi cations within the aortic knob. Diffuse interstitial/vascular thickening consistent with mild pulmonary edema. There are trace bilateral pleural effusions. Bibasilar linear densities favor subsegmental atelectasis. Degenerative changes within the shoulders. There is a large hiatus hernia again noted. IMPRESSION: 1. Cardiomegaly and mild interstitial pulmonary edema. 2. Trace bilateral pleural effusions. 3. Large hiatus hernia. ACT 112: Negative or not required by law. Electronically signed by: Víctor Almodovar M.D. 06/06/2023 1:35 PM Supervising Physician Co-Signing Physician Notes Patient is a 87-year-old female with past medical history of hypertension, hyperparathyroidism, hyperthyroidism presented with shortness of breath on exertion. Patient had gained 15 pounds in the last 2 weeks. She reports shortness of breath on minimal exertion. No complaint of chest pain, cough, fever or chills. Chest x-ray personally reviewed; vascular congestion consistent with pulmonary edema. BNP elevated to 600 Last echocardiogram in August 2022 showed EF of 55 to 59%; moderate to severe tricuspid regurgitation, severe pulmonary hypertension present, small anterior loculated pericardial effusion. On physical examination; Constitutional: Alert oriented x 3; not in distress. Respiratory: Bilateral basal crackles present. Cardiovascular: RRR, no murmur, no edema Vessels: no JVD or carotid bruit Chest: normal inspection of chest Abdomen: normal bowel sounds, soft, nontender, no hepatosplenomegaly Musculoskeletal: no cyanosis or clubbing, extremities motor strength 5/5 Skin: no rashes, warm and dry normal turgor Neurologic: PERRL, EOMI, accommodation nl, no face palsy, no dysarthria CN's II- XI intact bilaterally and moves all extremities Psychiatric: A+Ox3, euthymic affect Assessment/plan Acute on chronic diastolic heart failure Pulmonary hypertension Lasix 20 mg IV twice daily Continue lisinopril and amlodipine Strict input and output monitoring Repeat chest x-ray next few days Obtain echocardiogram Cardiology consult Hypertensive urgency; Continue home meds Continue home meds for hyperthyroidism Please note the above document was generated using voice recognition software. It may contain grammatical, syntax or spelling errors. Any formal questions or concerns about the content, text or information contained within the body of this dictation should be directly addressed to the provider for clarification (1) Acute exacerbation of CHF (congestive heart failure) Heart failure type: unspecified Qualified Code(s): I50.9 - Heart failure, unspecified (3) Hypertension Hypertension type: primary hypertension Qualified Code(s): I10 - Essential (primary) hypertension
[2023-06-06] MEDS ORDERED: ACETAMINOPHEN 325 MG TAB PO PRN (17:41)
--- OUTSIDE RECORDS SUMMARY | 2023-06-06 17:42 | External Medical Summary | Summary of Care ---
Author Name Unknown Organization [facility] [address] [facility] [address] Phone [phone] Care Team Providers Care Appliance Repair Technician Name Role Phone Monse Ireland Primary Care Provider Reason for Visit * Reason Comments Acute SOB with exertion. Encounter Details Date Type Department Care Team (Late st Contact Info) Description 06/06/2023 11:20 AM EST Office Visit Family Practice [facility] [address] [place] [id number] Hortencia Esquivel CRNP [address] [place] [id number] SOB (shortness of breath)*; Hypervolemia, unspecified hypervolemia type; Severe tricuspid regurgitation; Severe pulmonary hypertension (HCC); HTN, goal below 140/90 Allergies Active Allergy Reactions Criticality Noted Date Comments Morphine Nausea/vomiting 03/29/2014 documented as of this encounter (statuses as of 06/06/2023) Medications Medication Sig Dispensed Refills Start Date End Date Status PREVACID 15 MG OR PACK 1 PO QAM 0 0 11/26/2004 Active nystatin-triamcinolo ne (MYCOLOG) 987928-3.1 UNIT/GM-% ointment 0 08/04/2015 Active clobetasol propionate (TEMOVATE) 0.05 % creamIndications:Gerald matitis Apply topically to affected area 2 times a day. To affected area for up to two weeks. 60 g 1 01/02/2016 Active Diclofenac Sodium 1 % gelIndications:MEDIC ATION USE AGREEMENT Place 4 g topically on the skin 4 times a day. Apply to R wrist - rub in well 100 g 2 03/24/2019 Active famotidine (PEPCID) 20 MG Tablet Take 1 Tab by mouth daily. 90 Tab 3 06/30/2019 Active amLODIPine Besylate 5 MG Oral Tablet (Norvasc)Indications :HTN, goal below 140/90 Take 1 Tablet by mouth in the morning. 90 Tablet 11 08/04/2022 Active Lisinopril 30 MG Oral TabletIndications:HT N, goal below 140/90 Take 1 Tablet by mouth in the morning. 90 Tablet 3 08/04/2022 Active Zoster Vac Recomb Adjuvanted 50 MCG/0.5ML Intramuscular Suspension Reconstituted (Shingrix)Indication s:Need for shingles vaccine Inject 0.5 mL into a large muscle now and repeat dose in 60 to 180 days 1 Each 1 08/25/2022 Active Additional Information Patient not taking.Reported on 06/06/2023 methIMAzole 5 MG Oral Tablet (Tapazole) Take 1 Tablet by mouth in the morning. 0 Active Cinacalcet HCl 60 MG Oral Tablet (Sensipar) Take 1 Tablet by mouth 2 times a day. 0 12/04/2022 Active Omeprazole 20 MG Oral Capsule Delayed Release (PriLOSEC)Indication s:Gastroesophageal reflux disease without esophagitis Take 1 Capsule by mouth in the morning. 1 hour before the first meal of the day. 90 Capsule 3 05/25/2023 Active Zoster Vac Recomb Adjuvanted 50 MCG/0.5ML Intramuscular Suspension Reconstituted (Shingrix)Indication s:Need for shingles vaccine Inject 0.5 mL into a large muscle now and repeat dose in 60 to 180 days 1 Each 1 05/25/2023 Active Additional Information Patient not taking.Reported on 06/06/2023 traMADol HCl 50 MG Oral Tablet (Ultram)Indications: Chronic bilateral low back pain without sciatica Take 1 Tablet by mouth every 8 hours as needed for Pain, Severe. 60 Tablet 0 06/03/2023 Active Additional Information Patient not taking.Reported on 06/06/2023 documented as of this encounter (statuses as of 06/06/2023) Active Problems Problem Noted Date Diagnosed Date Iron deficiency anemia 03/18/2021 MEDICATION USE AGREEMENT 08/03/2018 Hyperparathyroidism, primary 12/11/2017 Senile osteoporosis 09/10/2017 Hypercalcemia 10/01/2015 Hyperthyroidism 10/01/2015 HTN, goal below 140/90 Gastroesophageal reflux disease without esophagi tis documented as of this encounter (statuses as of 06/06/2023) Resolved Problems Problem Noted Date Diagnosed Date [...] as of this encounter (statuses as of 06/06/2023) Immunizations Name Administration Dates Next Due Pneumococcal Conjugate Vacc, 13 Valent (Prevnar) 03/13/2017 Pneumococcal Polysaccharide PPV23 (Pneumovax) Seasonal Influenza, Quadrivalent Hd (Fluzone Hd) 08/04/2022 documented as of this encounter Social History Tobacco Use Types Packs/Day Years Used Date Smoking Tobacco: Never Passive Smoke Exposure: Past Smokeless Tobacco: Never Tobacco Cessation:Counseling Given: Not Answered Passive Exposure Comments:As A Child. Alcohol Use [...] on file documented as of this encounter Last Filed Vital Signs Vital Sign Reading Time Taken Comments Blood Pressure 152/76 06/06/2023 11:13 AM EST Pulse 64 06/06/2023 11:13 AM EST Temperature 37.1 C (98.7 F) 06/06/2023 11:[address] Respiratory Rate 20 06/06/2023 11:13 AM EST Oxygen Saturation 98% 06/06/2023 11:13 AM EST Inhaled Oxygen Concentration - - Weight 77.8 kg (171 lb 8 oz) 06/06/2023 11:03 AM EST Height 157.5 cm (5' 2") 06/06/2023 11:03 AM EST Body Mass Index 31.37 06/06/2023 11:03 AM EST documented in this encounter Progress Notes * Hortencia Esquivel CRNP - 06/06/2023 11:28 AM EST Images from the original note were not included. Follow up Family Medicine Visit History of Present Illness Emily Shrestha is a very pleasant 87 year old female with PMH listed below presenting with SOB withexertion. Accompanied by her daughter in law Minnie. She had most recently seen by her pcp 2 weeks ago for routine follow up. Echo on 09/12/22 showed significant tricuspid regurg, enlarged left atrium, severe pulmonary hypertension. She used to see Dr. Chapman for her runner man in past, but has not seen him in sometime. She has upcoming f/u with runner man in June. She is here on weekend clinic due to worsening SOB past 10 days and increased BLE swelling. Worse at night when she laid down, she had to stay in a recliner this morning. Today, she presents with initial BP of 172/86, and 15 lbs weight gain over 2 weeks. She had to stopseveral times to walk from front door to the room today. She denies chest pain at rest or exertion,but more SOB with exertion. Social History Socioeconomic History Marital status: Spouse name: Not on file Number of children: 3 Years of education: Not on file Highest education level: Not on file Occupational History Not on file Tobacco Use Smoking status: Never Passive exposure: Past (As A Child.) Smokeless tobacco: Never Vaping Use Vaping Use: Never used Substance and Sexual Activity Alcohol use: No Drug use: No Sexual activity: Not on file Other Topics Concern Not on file Social History Narrative Lives with in [place]. 57 years. Pets: dogs Children: 3 Nonsmoker Social Determinants of Health Financial Resource Strain: Not on file Food Insecurity: No Food Insecurity (01/14/2020) Hunger Vital Sign Worried About Running Out of Food in the Last Year: Never true Ran Out of Food in the Last Year: Never true Transportation Needs: Not on file Physical Activity: Not on file Stress: Not on file Social Connections: Not on file Intimate Partner Violence: Not on file Housing Stability: Not on file PMH: Past Medical History: Diagnosis Date Gastric ulcer GERD (gastroesophageal reflux disease) HTN, goal below 140/90 ovarian cancer 1995 TRAVON Past Surgical History: Procedure Laterality Date ARTHROPLASTY KNEE TOTAL 06/29/2007 R , Dr Yassine Dumont BIOPSY OF BREAST, OPEN 12/02/2004 left breast duct exc at [facility] by Dr. Alvarez COLONOSCOPY 06/29/2010 polyp, precancerous COLONOSCOPY, DIAGNOSTIC (RECTUM) 06/14/2015 hyperplastic polyp/COLONOSCOPY FLEXIBLE PROXIMAL DIAGNOSTIC performed by Natalia Anaya MD at ENDOSCOPY [facility] COLONOSCOPY, DIAGNOSTIC (RECTUM) 05/15/2021 diverticulosis / COLONOSCOPY FLEXIBLE PROXIMAL DIAGNOSTIC performed by Sridhar Henao MD at ENDOSCOPY [facility] COLONOSCOPY/REMOVE LESION 06/29/2006 polyp removed and part of colon removed, Dr Parker EGD, FLEXIBLE, DIAGNOSTIC 05/15/2021 gastric polyps, hiatal hernia / ESOPHAGOGASTRODUODENOSCOPY (EGD), FLEXIBLE, TRANSORAL, DIAGNOSTIC performed by Sridhar Henao MD at ENDOSCOPY [facility] NONE 06/29/1986 D & C NONE 06/29/1998 x1 cyst aspirations right breast NONE 1964.66 x2 surgical bx. done on left breast NONE 06/29/1948 tonsils and adenoids NONE 06/29/1977 umbilical hernia x2 , inguinal bilateral NONE 1954,57,63 vaginal deliveries NONE 06/29/1984 parathyroid surgery at [facility], Small tumor and was benign NONE 06/29/1995 total hysterectomy at [facility] Outpatient Medications Marked as Taking for the 06/06/23 encounter (Office Visit) with Hortencia Esquivel CRNP Medication Sig Omeprazole 20 MG Oral Capsule Delayed Release (PriLOSEC) Take 1 Capsule by mouth in the morning. 1 hour before the first meal of the day. Cinacalcet HCl 60 MG Oral Tablet (Sensipar) Take 1 Tablet by mouth 2 times a day. methIMAzole 5 MG Oral Tablet (Tapazole) Take 1 Tablet by mouth in the morning. amLODIPine Besylate 5 MG Oral Tablet (Norvasc) Take 1 Tablet by mouth in the morning. Lisinopril 30 MG Oral Tablet Take 1 Tablet by mouth in the morning. famotidine (PEPCID) 20 MG Tablet Take 1 Tab by mouth daily. Diclofenac Sodium 1 % gel Place 4 g topically on the skin 4 times a day. Apply to R wrist - rub in well clobetasol propionate (TEMOVATE) 0.05 % cream Apply topically to affected area 2 times a day. To affected area for up to two weeks. PREVACID 15 MG OR PACK 1 PO QAM Review of patient's allergies indicates: Allergen Reactions Morphine Nausea/vomiting Most Recent Immunizations Administered Date(s) Administered Pneumococcal Conjugate Vacc, 13 Valent (Prevnar) 03/13/2017 Pneumococcal Polysaccharide PPV23 (Pneumovax) 10/01/2015 Seasonal Influenza, Quadrivalent Hd (Fluzone Hd) 08/04/2022 Review of Systems: Physical Exam BP 152/76 | Pulse 64 | Temp 37.1 C (98.7 F) (Temporal Artery) | Resp 20 | Ht 1.575 m (5' 2") | Wt 77.8 kg (171 lb 8 oz) | SpO2 98% | BMI 31.37 kg/m | BSA 1.84 m Physical Exam Constitutional: General: She is not in acute distress. Appearance: Normal appearance. She is not toxic-appearing. HENT: Head: Normocephalic. Cardiovascular: Rate and Rhythm: Normal rate and regular rhythm. Heart sounds: Murmur heard. Pulmonary: Effort: Pulmonary effort is normal. Breath sounds: Examination of the right-lower field reveals rales. Examination of the left-lower field reveals rales. Rales present. No wheezing. Musculoskeletal: Cervical back: Neck supple. Right lower leg: Edema (+3) present. Left lower leg: Edema (+3) present. Skin: General: Skin is warm. Neurological: Mental Status: She is alert and oriented to person, place, and time. Psychiatric: Mood and Affect: Mood normal. Assessment and Plan 1. SOB (shortness of breath) Hx of preexisting cardiac conditions, lost f/u with runner man past few years Recommend to go ER, pt agreeable Declined ambulance, Minnie will drive 2. Hypervolemia, unspecified hypervolemia type 15 lbs weight gain in 2 weeks, BP 172/86 initially down to 152/76 +3 BLE edema and crackles 3. Severe tricuspid regurgitation Noted on Echo 09/12/22 4. Severe pulmonary hypertension (HCC) 5. HTN, goal below 140/90 Wrap-Up I have advised the patient to call our office with any worsening or new symptoms. I spent a total of Greater than 55 mins (exact time 56 mins) on the date of service in preparation,delivery, and documentation of the care provided to Emily Shrestha excluding any time spent in the performance of separately billed services. Hortencia Esquivel, MSN, [facility] documented in this encounter Nursing Notes * Christine Hayes LPN - 06/06/2023 11:11 AM EST The patient has been properly identified by confirmation of name and date of . Chief Complaint Patient presents with Acute SOB with exertion. SPO2 96% when walking to room. Pulse 96 when walking, dropped to 64 with rest Blood pressure 172/86 , dropped to 152/76 98% after sitting in room for a few minutes documented in this encounter Plan of Treatment Upcoming Encounters Date Type Department Care Team (Late st Contact Info) Description 09/30/2023 11:30 AM EDT Office Visit [facility] [address] [place] [address] Monse Ireland DO [address] [place] [address] Scheduled Procedures Name Priority Associated Diagnoses Date/Ti me ESOPHAGOGASTRODUODENOSCOPY ( EGD), FLEXIBLE, TRANSORAL: MUCOSAL RESECTION Recall Gastric polyps Health Maintenance Due Date Last Done Comments DTaP,Tdap,and Td Vaccines (1 - Tdap) 10/20/1954 Zoster Vaccines (1 of 2) 1986 Depression Screening 01/13/2021 01/14/2020 COVID-19 Vaccine ( season) 2023 2020, 09/28/2020 Influenza Vaccine (FLU shot) (#1) 2023 08/04/2022 DXA Scan 10/30/2023 10/29/2021, 0210/2019, 02/17/2017, Additional history exists Albumin/Creatinine Ratio 06/02/2026 06/02/2023 Pneumococcal Vaccine: 65+ Years Completed 03/13/2017, 10/01/2015 VITAMIN D LEVEL ONCE IN A LIFETIME-USE SMARTSET# [id number] Completed 01/14/2020 GARDASIL-HPV IMMUNIZATION SERIES Aged Out [...] as of this encounter Visit Diagnoses Diagnosis SOB (shortness of breath)- Primary Shortness of breath Hypervolemia, unspecified hypervolemia type Severe tricuspid regurgitation Diseases of tricuspid valve Severe pulmonary hypertension (HCC) HTN, goal below 140/90 Unspecified essential hypertension documented in this encounter Care Teams Appliance Repair Technician Relationship Specialty Start Date End Date Monse Ireland DO [address] [place] [address] PCP - General Family Medicine 08/03/18 documented as of this encounter
[2023-06-06] MEDS ORDERED: INFLUENZA VACCINE HIGH-DOSE (HD-IIV4) PF 65+ 0.7mL SYR IM ONE (18:02)
[2023-06-06] MEDS: CINACALCET HCL 30 MG TAB PO SCH (20:55)
[2023-06-07 07:36] LABS: BUN Creatinine Ratio 17.2 (10-20); Calcium 8.4 mg/dl (8.6-10.3); Creatinine Clr Calc Pharmacy 40.9 ml/min; Est GFR (African American) 64.5 ml/min; Est GFR (Non-African American) 55.6 ml/min; Potassium 3.5 mmol/L (3.5-5.1)
--- NOTE | 2023-06-07 07:43 | Electrocardiogram Report ---
Test Reason : Blood Pressure : / mmHG Vent. Rate : 077 BPM Atrial Rate : 077 BPM P-R Int : 140 ms QRS Dur : 090 ms QT Int : 400 ms P-R-T Axes : 073 -29 084 degrees QTc Int : 452 ms Normal sinus rhythm Possible Left atrial enlargement Minimal voltage criteria for LVH, may be normal variant Abnormal ECG When compared with ECG of 31-JAN-2016 12:23, No significant change was found Confirmed by Ahmet Naik ([id number]) on 06/07/2023 7:42:38 AM Referred By: Confirmed By:Xiang Naik
[2023-06-07] MEDS: CINACALCET HCL 30 MG TAB PO SCH ×2 (08:57→20:40)
[2023-06-07] MEDS: PANTOprazole 40 MG TAB PO SCH (08:58)
[2023-06-07] MEDS: methIMAzole 5 MG TABLET PO SCH (08:58)
[2023-06-07] MEDS: amLODIPine BESYLATE 5 MG TAB PO SCH (08:59)
[2023-06-07] MEDS: ENOXAPARIN INJ 40 MG/0.4 ML SYR SQ SCH (08:59)
[2023-06-07] MEDS: lisinopril 10 MG TAB PO SCH (08:59)
[2023-06-07] MEDS: FUROSEMIDE 40 MG/4 ML VIAL IV SCH ×2 (08:59→16:01)
[2023-06-07] MEDS ORDERED: FUROSEMIDE INJ 20 MG/2 ML VIAL IV SCH (09:00)
--- NOTE | 2023-06-07 09:47 | Hospitalist Progress Note ---
Date of Service June 07, 2023 Assessment & Plan (1) Acute exacerbation of CHF (congestive heart failure): (2) Pulmonary hypertension: Plan: This is an 87 y/o female with hyperparathyroidism, HTN, toxic multinodular goiter, osteoporosis with vitamin D deficiency, GERD, and other history as outlined who was referred to the ED from [facility] with progressive [place] and weight gain. Work-up in the ED consistent with volume overload as evidenced by peripheral edema, chest x-ray with interstitial pulmonary edema, and elevated BNP. Increase Lasix to 40 mg IV twice daily Echocardiogram pending Cardiology to optimize medication Strict input and output monitoring Daily weights Will likely need oral diuretics at discharge. (3) Hypertension: Plan: Continue on amlodipine and lisinopril. Currently started on Lasix as well (4) Hyperthyroidism: Plan: Onmethimazole; continue. Continue outpatient follow-up with endocrinology (5) Hyperparathyroidism: Plan: Follow-up as outpatient with endocrinology. (6) GERD without esophagitis: Plan: Recently started PPI with improvement in symptoms. Will continue. Plan Time spent evaluating patient, direct bedside care, chart review, placing orders, interpretation of diagnostic studies, discussion with patient as well as other required patient management activities is 50-minute Please note the above document was generated using voice recognition software. It may contain grammatical, syntax or spelling errors. Any formal questions or concerns about the content, text or information contained within the body of this dictation should be directly addressed to the provider for clarification Admission and Anticipated Discharge Date Admission Date: June 06, 2023 Subjective Patient seen and examined at bedside. She reports that she is feeling slightly better today. Denies increasing shortness of breath or chest pain. She is saturating well on room air Review of Systems Review of Systems: All systems reviewed & are unremarkable except as noted in Subjective Physical Exam Physical Exam: Constitutional: Alert oriented x 3; not in distress. Respiratory: Bilateral basal crackles present. Cardiovascular: RRR, no murmur, no edema Vessels: no JVD or carotid bruit Chest: normal inspection of chest Abdomen: normal bowel sounds, soft, nontender, no hepatosplenomegaly Musculoskeletal: no cyanosis or clubbing, extremities motor strength 5/5. 1+ pitting edema. Skin: no rashes, warm and dry normal turgor Neurologic: PERRL, EOMI, accommodation nl, no face palsy, no dysarthria CN's II- XI intact bilaterally and moves all extremities Psychiatric: A+Ox3, euthymic affect Results & Data Results & Data Vital Signs (Past 12 Hours) Vital Signs Temp Pulse Pulse Resp BP BP Pulse Ox 06/07/23 07:56 36.8 C 62 18 156/76 H 95 06/07/23 07:09 63 06/07/23 02:55 36.4 C L 62 18 156/70 H 91 06/06/23 22:46 36.4 C L 71 18 149/70 H 93 O2 Del Method 06/07/23 07:56 Room Air 06/07/23 07:09 06/07/23 02:55 Room Air 06/06/23 22:46 Room Air Laboratory Results Laboratory Results WBC 6.35 K/ul (4.8-10.8) 06/06/23 12:30 RBC 4.56 M/uL (4.20-5.40) 06/06/23 12:30 Hgb 9.9 g/dl (12.0-16.0) L 06/06/23 12:30 Hct 34.2 % (37.0-47.0) L 06/06/23 12:30 MCV 75.0 fL (80.0-100.0) L 06/06/23 12:30 MCH 21.7 pg (25.0-34.0) L 06/06/23 12:30 MCHC 28.9 g/dL (32.0-36.0) L 06/06/23 12:30 RDW Std Deviation 44.3 fL (36.4-46.3) 06/06/23 12:30 RDW Coeff of Denilson 16.4 % (11.5-14.5) H 06/06/23 12:30 Plt Count 293 K/uL (130-400) 06/06/23 12:30 MPV 10.4 fL (9.4-12.4) 06/06/23 12:30 Immature Gran % (Auto) 0.5 % 06/06/23 12:30 Neut % (Auto) 67.6 % 06/06/23 12:30 Lymph % (Auto) 20.8 % 06/06/23 12:30 [place] % (Auto) 9.1 % 06/06/23 12:30 Eos % (Auto) 1.7 % 06/06/23 12:30 Baso % (Auto) 0.3 % 06/06/23 12:30 Neut # (Auto) 4.29 K/uL (1.40-6.50) 06/06/23 12:30 Lymph # (Auto) 1.32 K/uL (1.20-3.40) 06/06/23 12:30 [place] # (Auto) 0.58 K/uL (0.11-0.59) 06/06/23 12:30 Eos # (Auto) 0.11 K/uL (0.00-0.50) 06/06/23 12:30 Baso # (Auto) 0.02 K/uL (0.00-0.20) 06/06/23 12:30 Immature Gran # (Auto) 0.03 K/uL (0.01-0.20) 06/06/23 12:30 Hypochromasia Present 06/06/23 12:30 Ovalocytes 1+ 06/06/23 12:30 PT 10.5 Seconds (9.0-12.0) 06/06/23 12:30 INR 1.0 (0.9-1.1) 06/06/23 12:30 APTT 24 Seconds (21-31) 06/06/23 12:30 PTT Ratio 0.9 06/06/23 12:30 Sodium 141 mmol/L (136-145) 06/07/23 06:06 Potassium 3.5 mmol/L (3.5-5.1) 06/07/23 06:06 Chloride 107 mmol/L (98-107) 06/07/23 06:06 Carbon Dioxide 26 mmol/L (21-32) 06/07/23 06:06 Anion Gap 8 (3-11) 06/07/23 06:06 BUN 16 mg/dl (6-23) 06/07/23 06:06 Creatinine 0.93 mg/dl (0.6-1.2) 06/07/23 06:06 Est Cr Clr Drug Dosing 40.9 ml/min 06/07/23 06:06 Est GFR ( Amer) 64.5 ml/min 06/07/23 06:06 Est GFR (Non-Af Amer) 55.6 ml/min 06/07/23 06:06 BUN/Creatinine Ratio 17.2 (10-20) 06/07/23 06:06 Glucose 82 mg/dl (70-99(Fasting)) 06/07/23 06:06 Calcium 8.4 mg/dl (8.6-10.3) L 06/07/23 06:06 Total Bilirubin 0.5 mg/dl (0.2-1.0) 06/06/23 12:30 AST 38 U/L (13-39) 06/06/23 12:30 ALT 37 U/L (7-52) 06/06/23 12:30 Alkaline Phosphatase 69 U/L (34-104) 06/06/23 12:30 Troponin I High Sens 9.9 pg/ml (0-14) 06/06/23 12:30 B-Natriuretic Peptide 502 pg/ml (0-100) H 06/07/23 06:06 Total Protein 6.9 gm/dl (6.0-8.3) 06/06/23 12:30 Albumin 4.2 gm/dl (3.4-5.0) 06/06/23 12:30 Globulin 2.7 gm/dl (2.5-4.0) 06/06/23 12:30 Albumin/Globulin Ratio 1.6 (0.9-2) 06/06/23 12:30 Impressions Chest X-Ray 06/06/23 12:39 XR chest 1V not portable HISTORY: Chest pain, nonspecific COMPARISON: Chest 04/21/2021. FINDINGS: No pneumothorax. The heart is mildly enlarged. There are calcifications within the aortic knob. Diffuse interstitial/vascular thickening consistent with mild pulmonary edema. There are trace bilateral pleural effusions. Bibasilar linear densities favor subsegmental atelectasis. Degenerative changes within the shoulders. There is a large hiatus hernia again noted. IMPRESSION: 1. Cardiomegaly and mild interstitial pulmonary edema. 2. Trace bilateral pleural effusions. 3. Large hiatus hernia. ACT 112: Negative or not required by law. Electronically signed by: Víctor Almodovar M.D. 06/06/2023 1:35 PM (1) Acute exacerbation of CHF (congestive heart failure) Heart failure type: unspecified Qualified Code(s): I50.9 - Heart failure, unspecified (3) Hypertension Hypertension type: primary hypertension Qualified Code(s): I10 - Essential (primary) hypertension
--- NOTE | 2023-06-07 10:25 | Cardiology Consultation ---
Date of Consultation June 07, 2023 Assessment & Plan (1) Acute exacerbation of CHF (congestive heart failure): (2) Pulmonary hypertension: (3) Hypertension: (4) Aortic stenosis: (5) Mitral regurgitation: Plan 1. Congestive heart failure, edema: Patient did appear to have an element of volume overload at the time admission. On examination today her legs were free of edema. Lung examination was normal. She is feeling much better. Likely a combination of pulmonary hypertension, associated right ventricular failure and diastolic dysfunction. She seems to have responded well to diuresis. She will receive additional diuretics today. Very likely the time of discharge she would benefit from a daily dose of diuretic, perhaps 20 mg monitoring her electrolytes and renal function closely. 2. Diastolic dysfunction: Longstanding history of hypertension and LVH. Likely responsible for her pulmonary hypertension. Aggressive blood pressure control is warranted. She may also benefit from the addition of an SG LT 2 inhibitor 3. Pulmonary hypertension: Likely related to her diastolic heart failure. No primary pulmonary process of which I am aware. 4. Edema: Likely related to pulmonary hypertension and an element of right ventricular failure. Managed with diuretics, blood pressure control and treatment of diastolic dysfunction. 5. Valvular heart disease: She has an element of aortic stenosis and mitral regurgitation. Neither of these are severe. History of Present Illness Reason for Consultation: Congestive heart failure, edema Requesting Physician: Eloise Attending Physician: Michael Larson MD History of Present Illness The patient is an 87-year-old woman with a history of left ventricular hypertrophy, likely associated diastolic dysfunction and aortic valve sclerosis presented to the hospital with concerns of breathing difficulty and edema. It seems that the patient was in her usual state of health until approximately 2 weeks ago. She states that she is ambulatory without assistive devices and generally speaking is not winded. She is not describe exertional chest pain, dizziness or lightheadedness. She has not been aware of palpitations recently. She does have a very rare skipped beat but this is infrequent and fleeting. Approximately 2 weeks ago she began to have more difficulty with activities. She states that ambulating her usual distance with our result in some dyspnea. Two days before admission she developed symptoms of orthopnea and was noted to have significant lower extremity edema. There was report of a 15 lb weight gain based on outpatient monitoring. She sought medical evaluation in outpatient setting and was advised to go to the emergency room. Patient states that she urinated quite a bit over the past 24 hours. She states that her breathing is improved today. She has been back in 4 to the commode in her room with minimal dyspnea. No dizziness or lightheadedness. Orthopnea also appears to be improved. She feels that her edema is nearly resolved. Allergies Allergy/AdvReac Type Severity Reaction Status Date / Time morphine AdvReac Unknown NAUSEA Verified 04/15/23 11:35 Home Medications Medication Instructions Recorded Confirmed Type zoledronic acid 5 mg/100 mL in 1 ea IV YEARLY 08/30/19 06/06/23 History mannitol 5 %-water intravenous piggybck (Reclast) amlodipine 5 mg tablet 5 mg PO DAILY 03/27/21 06/06/23 History cinacalcet 60 mg tablet 60 mg PO BID #60 tabs 02/24/23 06/06/23 Rx methimazole 5 mg tablet 10 mg (2 x 5 mg) PO DAILY #60 tabs 03/09/23 06/06/23 Rx lisinopril 30 mg tablet 30 mg PO DAILY 06/06/23 06/06/23 History omeprazole 20 mg capsule,delayed 20 mg PO DAILY 06/06/23 06/06/23 History release tramadol 50 mg tablet 50 mg PO BID PRN Pain 06/06/23 06/06/23 History Patient History Medical History History of peptic ulcer disease GERD without esophagitis Iron deficiency anemia Toxic multinodular goiter Vitamin D deficiency Osteoporosis Hypercalcemia Hyperparathyroidism Hypertension Hyperthyroidism Uterine cancer Inguinal hernia Breast cyst Arthritis Surgical History History of parathyroid surgery History of D&C History of tonsillectomy Status post total right knee replacement H/O: hysterectomy Family History Mother Diabetes Sister Diabetes Brother Cancer Social History Smoking Status: Never smoker Second Hand Exposure: No; Do You Dip or Chew Tobacco: No; Tobacco Cessation Education Requested by Patient: No Hx Alcohol Use: No Hx Substance Use: No Preferred Language: [place] Communication Ability: Effective Social Research Assistant Required: No Beliefs That Will Affect Care: Religion Religion Beliefs: MUSLIM SO NO BLOOD PRODUCTS Current Living Situation: Alone Other Information That Helps Us Care for You: No Feels Safe at Home: Yes Safety Concerns: Feels Safe At This Time Assistive Devices: None Physical Exam Physical Exam: Per HPI Results & Data Vital Signs (Past 12 Hours) Vital Signs Temp Pulse Pulse Resp BP BP Pulse Ox 06/07/23 09:37 06/07/23 07:56 36.8 C 62 18 156/76 H 95 06/07/23 07:09 63 06/07/23 02:55 36.4 C L 62 18 156/70 H 91 06/06/23 22:46 36.4 C L 71 18 149/70 H 93 O2 Del Method 06/07/23 09:37 Room Air 06/07/23 07:56 Room Air 06/07/23 07:09 06/07/23 02:55 Room Air 06/06/23 22:46 Room Air Laboratory Results Abnormal Lab Results 06/06/23 06/07/23 12:30 06:06 WBC 6.35 RBC 4.56 Hgb 9.9 L Hct 34.2 L MCV 75.0 L MCH 21.7 L MCHC 28.9 L RDW Std Deviation 44.3 RDW Coeff of Denilson 16.4 H Plt Count 293 MPV 10.4 Immature Gran % (Auto) 0.5 Neut % (Auto) 67.6 Lymph % (Auto) 20.8 Bay % (Auto) 9.1 Eos % (Auto) 1.7 Baso % (Auto) 0.3 Neut # (Auto) 4.29 Lymph # (Auto) 1.32 Bay # (Auto) 0.58 Eos # (Auto) 0.11 Baso # (Auto) 0.02 Immature Gran # (Auto) 0.03 Hypochromasia Present Ovalocytes 1+ PT 10.5 INR 1.0 APTT 24 PTT Ratio 0.9 Sodium 142 141 Potassium 3.8 3.5 Chloride 109 H 107 Carbon Dioxide 24 26 Anion Gap 9 8 BUN 15 16 Creatinine 0.93 0.93 Est Cr Clr Drug Dosing 43.7 40.9 Est GFR ( Amer) 64.5 64.5 Est GFR (Non-Af Amer) 55.6 55.6 BUN/Creatinine Ratio 16.1 17.2 Glucose 97 82 Calcium 8.5 L 8.4 L Total Bilirubin 0.5 AST 38 ALT 37 Alkaline Phosphatase 69 Troponin I High Sens 9.9 B-Natriuretic Peptide 620 H 502 H Total Protein 6.9 Albumin 4.2 Globulin 2.7 Albumin/Globulin Ratio 1.6 Diagnostic Findings Chest x-ray obtained the time admission revealed mild pulmonary edema and cardiomegaly Echocardiogram dated 09/12/2022: Normal LV systolic function with ejection fraction of 55-60%. Mild aortic stenosis. Mild mitral annular calcification with moderate mitral regurgitation. Moderately enlarged left atrium. Moderate to severe tricuspid regurgitation. Moderate right atrial dilation. Estimated pulmonary pressure 78 mm of mercury. Echocardiogram performed 06/07/2023: Normal LV systolic function, moderate left ventricular hypertrophy, moderately dilated left atrium, mildly dilated right atrium, moderate mitral regurgitation, [id number]-[id number] aortic stenosis, stage II diastolic dysfunction, pulmonary pressures estimated at 50-60 mm of mercury ECG Additional Comments: Normal sinus rhythm. Left atrial enlargement and criteria for LVH. PG Care Time/CCT Total # of Minutes Spent Total Time Spent with Patient: Total time spent is greater than 50% in coordination of care (as documented) at patient's floor/unit and/or counseling patient: Coding Level of Care Code 56564 INT INP/OBS CARE 375MIN Diagnoses Acute on chronic congestive heart failure, unspecified heart failure type I50.9 Heart failure type: unspecified Pulmonary hypertension I27.20 Primary hypertension I10 Hypertension type: primary hypertension Nonrheumatic aortic valve stenosis I35.0 Cardiac valve disease etiology: nonrheumatic Nonrheumatic mitral valve regurgitation I34.0 Cardiac valve disease etiology: nonrheumatic (1) Acute exacerbation of CHF (congestive heart failure) Heart failure type: unspecified Qualified Code(s): I50.9 - Heart failure, unspecified (3) Hypertension Hypertension type: primary hypertension Qualified Code(s): I10 - Essential (primary) hypertension (4) Aortic stenosis Cardiac valve disease etiology: nonrheumatic Qualified Code(s): I35.0 - Nonrheumatic aortic (valve) stenosis (5) Mitral regurgitation Cardiac valve disease etiology: nonrheumatic Qualified Code(s): I34.0 - Nonrheumatic mitral (valve) insufficiency
--- NOTE | 2023-06-07 10:34 | XCELERA ---
[id number] \\[id number]
[2023-06-07] MEDS ORDERED: MELATONIN 3 MG TAB PO PRN (21:06)
[2023-06-08 06:08] LABS: BUN Creatinine Ratio 17.2 (10-20); Calcium 8.2 mg/dl (8.6-10.3); Creatinine Clr Calc Pharmacy 29.6 ml/min; Est GFR (African American) 43.8 ml/min; Est GFR (Non-African American) 37.8 ml/min; Potassium 3.4 mmol/L (3.5-5.1)
[2023-06-08] MEDS: PANTOprazole 40 MG TAB PO SCH (07:50)
[2023-06-08] MEDS: CINACALCET HCL 30 MG TAB PO SCH (07:50)
[2023-06-08] MEDS: ENOXAPARIN INJ 40 MG/0.4 ML SYR SQ SCH (07:50)
[2023-06-08] MEDS: methIMAzole 5 MG TABLET PO SCH (07:51)
[2023-06-08] MEDS: lisinopril 10 MG TAB PO SCH (07:51)
[2023-06-08] MEDS: amLODIPine BESYLATE 5 MG TAB PO SCH (07:51)
[2023-06-08] MEDS: FUROSEMIDE 40 MG/4 ML VIAL IV SCH (07:52)
[2023-06-08] MEDS ORDERED: POTASSIUM CHLORIDE CRTAB 20 MEQ TABCR PO STA (08:04)
--- NOTE | 2023-06-08 12:41 | Discharge Summary ---
Date of Service June 08, 2023 Admission HPI Per Admitting Provider This is an 87 y/o female with hyperparathyroidism, HTN, toxic multinodular goiter, osteoporosis with vitamin D deficiency, GERD, and other history as outlined who was referred to the ED from [facility] with progressive SANFORD and weight gain. Pt reports intermittent issues with LE edema over the last two years but current episode of increased swelling started about two weeks ago. Often she can attribute to consuming salt in her diet but cannot recall any recent dietary indiscretions that would have triggered the current symptoms. Over the last 7-10 days, she has noticed dyspnea with exertion that has also wo rsened to the point of now interfering with her daily life. Her son relates an example from yesterday when she went to the [employer] salon and became short of breath just walking out to the car to the point of being unable to hold a conversation. She typically has to rest for 5-10 minutes before her breathing is back to baseline. She denies chest pain, dizziness, syncopal events, or dyspnea at rest. She has occasional palpitations, which are unchanged from usual. No recent illness - denies fevers, chills, N/V/D, cough, congestion, sore throat. She has been more fatigued than normal. Today, she was seen for these symptoms at [facility] and was noted to have a 15 lb weight gain. She was subsequently referred to the ED for evaluation and possible IV diuresis. ECHO 09/12/22 - LVEF 55-59%; mild AV stenosis and calcification with trace AI, mild mitral annular calcification, moderate MR, moderate LAE suggesting diastolic LV dysfunction; moderate to severe TR, moderate HONEY; severe pulmonary artery hypertension (estimated PA sys pressure 78 mm Hg) Admission Exam Per Admitting Provider General: awake, alert, NAD HEENT: no scleral icterus Neck: trachea midline Heart: RRR, +murmur Lungs: bibasilar rales Abdomen: soft, NT, +BS Extremities: 2+ pitting edema bilateral LE Skin: no jaundice Neuro: moving all extremities, no focal deficits; no dysarthria; Ox3 Principal Diagnosis Acute on chronic diastolic CHF Discharge Exam Constitutional: Alert oriented x 3; not in distress. Respiratory: Bilateral clear breath sounds Cardiovascular: RRR, no murmur, no edema Vessels: no JVD or carotid bruit Chest: normal inspection of chest Abdomen: normal bowel sounds, soft, nontender, no hepatosplenomegaly Musculoskeletal: no cyanosis or clubbing, extremities motor strength 5/5. Pitting edema resolved. Skin: no rashes, warm and dry normal turgor Neurologic: PERRL, EOMI, accommodation nl, no face palsy, no dysarthria CN's II- XI intact bilaterally and moves all extremities Psychiatric: A+Ox3, euthymic affect Discharge Data Allergies Allergy/AdvReac Type Severity Reaction Status Date / Time morphine AdvReac Unknown NAUSEA Verified 04/15/23 11:35 Consultations 06/06/23 15:05 ED Decision to Admit Stat 06/06/23 17:41 Consult Cardiology Routine Hospital Course (1) Acute exacerbation of CHF (congestive heart failure): (2) Pulmonary hypertension: (3) Hypertension: (4) Hyperthyroidism: (5) Hyperparathyroidism: (6) GERD without esophagitis: Plan This is an 87 y/o female with hyperparathyroidism, HTN, toxic multinodular goiter, osteoporosis with vitamin D deficiency, GERD, and other history as outlined who was referred to the ED from [facility] with progressive SANFORD and weight gain. Work-up in the ED consistent with volume overload as evidenced by peripheral edema, chest x-ray with interstitial pulmonary edema, and elevated BNP. Patient was admitted to telemetry floor. She was started on IV diuretics. Cardiology was consulted for comanagement. Patient underwent echocardiogram which showed normal LV systolic function with grade 2 diastolic dysfunction. Patient reported that her shortness of breath has significantly improved; the bilateral pitting edema also resolved. Patient discharged home with instruction to follow-up with PCP and follow-up with cardiology. She was started on Lasix 20 mg once daily as per cardiology recommendation Please note the above document was generated using voice recognition software. It may contain grammatical, syntax or spelling errors. Any formal questions or concerns about the content, text or information contained within the body of this dictation should be directly addressed to the provider for clarification Total Time Total Time Spent Total Time Spent (In Minutes): 45 Total Time Includes: Examination of the Patient, Discharge Planning, Medication Reconciliation, Communication With Other Providers and Other Discharge Plan Discharge Items Patient Disposition: Home - Self-Care Reason For Visit: VOLUME OVERLOAD Discharge Diagnosis: Acute on chronic CHF Activity: Resume your previous activity Non-emergency contact: Primary Care Provider Call non-emergency contact if: you have any medication questions and your symptoms worsen Follow-up/Referrals: Monse Ireland DO [Primary Care Provider] - (Date & Time 06/12/2023 11:10 AM Provider Monse Ireland DO Department [facility] ) Diet: Regular Addtl Attending Provider Instructions: You were admitted to the hospital due to heart failure. You were treated with IV diuretics during the hospitalization. Cardiology saw you during the hospitalization. They recommend Lasix 20 mg once a day for you starting tomorrow. An appointment will be set up with your primary care doctor for sometime this week/next week. Repeat BMP when you see your primary care doctor. Pending Studies at Discharge: No Stand-Alone Forms: My [facility] [email or web address], Smoking Cessation Medications and DC Order Prescriptions: New furosemide [Lasix] 20 mg tablet 20 mg PO DAILY Qty: 30 0RF Continued cinacalcet 60 mg tablet 60 mg PO BID Qty: 60 3RF Rx Instructions: Take 60 mg by mouth twice daily. methimazole 5 mg tablet 10 mg PO DAILY Qty: 60 1RF zoledronic paom-pkkvkbiw-eadce [Reclast] 5 mg/100 mL piggyback 1 ea IV YEARLY amlodipine 5 mg tablet 5 mg PO DAILY tramadol 50 mg tablet 50 mg PO BID PRN (Reason: Pain) lisinopril 30 mg tablet 30 mg PO DAILY omeprazole 20 mg capsule,delayed release(DR/EC) 20 mg PO DAILY Discharge Orders: Discharge Order- CHF (Routine); Ordered 06/08/23 Ordered By: Michael Larson Admission Data Admit Date/Time: 06/06/23 15:51 Attending Provider: Michael Larson Admit Provider: Michael Larson Primary Care Provider: Monse Ireland Other Providers: Michael Larson; Ahmet Naik Other Interventions: Discharge Summary Assessment (RN) Last Done: 06/08/23 08:53
== END 2023-06-08 09:59 | disposition home or self-care (01) | DRG 291 ==
LOC: ED 12:25 → 2E 15:51